=== PATIENT | male | born 1990 | race American Indian/Alaskan Native ===

== ENCOUNTER 2021-09-04 12:31 | Emergency (ER) | payer SELFPAY ==
[2021-09-04 13:44] VITALS: BP 123/64
== END 2021-09-04 14:00 | disposition left against medical advice (07) ==
LOC: ED 12:31
DX: S61.411A Laceration without foreign body of right hand, initial encounter (principal); Z53.21 Procedure and treatment not carried out due to patient leaving prior to being seen by health care provider; X58.XXXA Exposure to other specified factors, initial encounter; Y93.89 Activity, other specified; Y92.89 Other specified places as the place of occurrence of the external cause; Y99.8 Other external cause status